=== PATIENT | male | born 1940 | race Caucasian/White ===

== ENCOUNTER → 2019-11-04 12:19 | Outpatient (CLI) | payer MEDICARE, OTHER, SELFPAY ==
--- NOTE | 2019-11-04 12:21 | DI.RAD.S_ITS ---
PROCEDURE: XR CERVICAL SPINE 4V OR 5V INDICATIONS: Neck pain TECHNIQUE: 5 views of the cervical spine acquired. COMPARISON: None. FINDINGS: Bones: No fractures or dislocations to the T1 level. Oblique images demonstrate no bony foraminal stenoses. There is mild degenerative disc reduction at C3-4, and C5-6 and C6-7. No subluxation is associated. The facet osteoarthritis present at the C3-4 level results in foraminal stenosis that is minimal on the right but mild to moderate on the left. Soft tissues: No prevertebral soft tissue swelling. IMPRESSION: Relatively mild degenerative disc disease is present except at the C5-C6 and C6-C7 level where moderate such degeneration can be seen. Left greater than right 3-C4 neural foraminal stenosis. Dictated by: Papito Bennett M.D. on 11/04/2019 at 13:12 Approved by: Papito Bennett M.D. on 11/04/2019 at 13:13
== END ==
PROVIDERS: PCP Family Medicine; Referring Provider Physical Medicine & Rehabilitation; Visit Provider Physical Medicine & Rehabilitation
DX: M50.122 Cervical disc disorder at C5-C6 level with radiculopathy (principal); M48.02 Spinal stenosis, cervical region
CPT/HCPCS: 72050; 99214

== ENCOUNTER → 2019-11-19 07:30 | Outpatient (CLI) | payer MEDICARE, OTHER, SELFPAY ==
--- NOTE | 2019-11-19 07:32 | DI.MRI.S_ITS ---
PROCEDURE: MR CERVICAL SPINE WO CON INDICATIONS: cervical radiculopathy TECHNIQUE: Noncontrast sagittal T1 spin echo and T2 fast spin echo, sagittal STIR, foraminal oblique sagittal T2 fast spin echo, and axial gradient echo or T2 fast spin echo through the cervical spine. COMPARISON: None. FINDINGS: Image quality: Excellent. Alignment and Curvature: Trace degenerative anterolisthesis of C3 on C4. Bone Marrow: Marrow demonstrates normal overall signal. Spinal Cord: Visualized spinal cord has normal size and signal. No cerebellar tonsillar herniation. Paraspinous Soft Tissues: No paravertebral masses. Prevertebral soft tissues are normal in thickness. C2-C3: Mild disc bulge. Bilateral facet hypertrophy. No canal stenosis. Mild right foraminal stenosis. C3-C4: Moderate disc height loss. Mild disc bulge. No significant canal stenosis. Bilateral uncovertebral joint hypertrophy. Bilateral facet hypertrophy. Mild right foraminal narrowing. Moderate left foraminal narrowing with mild flattening deformity on the exiting left C4 nerve root sleeve. C4-C5: No canal stenosis. Bilateral facet hypertrophy. Mild bilateral foraminal narrowing. C5-C6: Moderate disc height loss. No significant canal stenosis. Bilateral uncovertebral joint osteophytes, right greater the left. Bilateral facet hypertrophy. Severe right foraminal narrowing with right C6 nerve root impingement. Moderate left foraminal narrowing with flattening deformity on the exiting left C6 nerve root sleeve. C6-C7: Mild disc height loss. Moderate diffuse disc bulge with mild flattening of the ventral cord and mild canal stenosis. Prominent bilateral uncovertebral joint osteophytes. Bilateral facet hypertrophy. Moderate to severe bilateral foraminal narrowing with flattening deformity on the exiting bilateral C7 nerve roots. C7-T1: No canal stenosis or foraminal stenosis. IMPRESSION: 1. Diffuse spondylitic change. 2. Mild canal stenosis at C6-C7. 3. Multilevel cervical facet arthropathy. 4. A combination of multilevel uncovertebral joint hypertrophy and multilevel facet arthropathy results in significant multilevel foraminal narrowing as described above. Dictated by: Nishant Gamble M.D. on 11/19/2019 at 10:08 Approved by: Nishant Gamble M.D. on 11/19/2019 at 10:16
== END ==
PROVIDERS: PCP Family Medicine; Referring Provider Physical Medicine & Rehabilitation; Visit Provider Physical Medicine & Rehabilitation
DX: M47.22 Other spondylosis with radiculopathy, cervical region (principal); M48.02 Spinal stenosis, cervical region
CPT/HCPCS: 72141

== ENCOUNTER → 2020-01-09 08:51 | Outpatient (CLI) | payer MEDICARE, OTHER, SELFPAY ==
[2020-01-11 10:35] LABS: COVID19 Sendout Not Detected (Not Detect)
== END ==
PROVIDERS: PCP Family Medicine; Visit Provider Nurse Practitioner
DX: Z11.59 Encounter for screening for other viral diseases (principal)
CPT/HCPCS: 87635

== ENCOUNTER 2020-01-12 08:48 | Outpatient (CLI) | payer MEDICARE, OTHER, SELFPAY ==
[2020-01-12] VITALS (10 sets, daily range): BP systolic 107–151; BP diastolic 67–88; PULSE 67–75; RESP 6–20; TEMP 36.2; O2SAT 96–99
--- NOTE | 2020-01-12 08:49 | DI.RAD.S_ITS ---
PROCEDURE: PAIN C/T FACET INJ/BLK 1ST L INDICATIONS: SPINAL STENOSIS COMPARISON: None. FINDINGS: Fluoroscopic spot filming was performed to verify placement of spinal needles at the C5-C6 and C6-C7 levels on the right, as labeled on the films. Appropriate location(s) of the needle tip(s) was confirmed by injection of iodinated contrast. IMPRESSION: Intraprocedural examination within normal limits. Dictated by: Luis Pino M.D. on 01/12/2020 at 10:37 Approved by: Luis Pino M.D. on 01/12/2020 at 10:37
[2020-01-12] MEDS: MIDAZOLAM 5 MG/5 ML VIAL IV (09:42)
[2020-01-12] MEDS: BUPIVACAINE 0.5% (PF) VIAL 2 ML INJ (09:45)
[2020-01-12] MEDS: IOPAMIDOL 15 ML VIAL 3 ML INJ (09:45)
[2020-01-12] MEDS: DEXAMETHASONE 10 MG/ML VIAL 20 MG INJ (09:45)
--- NOTE | 2020-01-12 09:54 | P.PCN_ITS ---
Date/Time/Diagnoses Date of procedure: 01/12/20 Time of procedure: 09:54 Pre-procedure diagnosis: 1. FACET ARTHROPATHY 2. AXIAL NECK PAIN Post-procedure diagnosis: same Procedure Notes Procedure: 1. FLUOROSCOPICALLY GUIDED, CONTRAST-CONTROLLED RIGHT C5/6 AND C6/7 FACET JOINT INJECTIONS WITH CONSCIOUS SEDATION. Indications: Sebas Miles is referred by Dr. Culver for treatment of Axial Neck Pain Physician: Markus Gracia Total Fluoroscopy time (seconds): 6 Total sedation minutes: 7 Complications: none Procedure in detail & Post-procedure care: DESCRIPTION OF PROCEDURE Fluoroscopically guided, contrast-controlled right C5/6 and C6/7 facet joint injections with conscious sedation. Following review of allergy and review of potential side effects and complications, including, but not necessarily limited to, infection, allergic reaction, local tissue breakdown, stroke, temporary or permanent nerve injury and paralysis, the patient indicated that the patient understood and agreed to proceed. An informed consent document was signed by the patient, witnessed by a nurse, and placed in the patient's chart. Additionally, other treatment options including medications, modalities, and physical therapy were reviewed with the patient. After review of previous anaesthesic history and IV conscious sedation the patient was deemed safe to proceed with today?s procedure with IV conscious sedation as ASA class II designation. Safety time-out was performed to confirm patient ID, procedure to be performed and site of procedure. IV sedation was accomplished with a combination of 2mg of Versed was administered by the RN after DO order, titrated to patient comfort during the course of the procedure while the patient remained responsive to all verbal commands In the prone position, following sterile prep and drape of the cervical spine region, the posterior aspect of the right C5/6 and C6/7 facet joints were identified fluoroscopically. The skin was anesthetized via a 25-gauge 1.5-inch needle with 1% lidocaine solution into the corresponding facet joints. At this point, a 25-gauge 2.5-inch spinal needle was atraumatically introduced and advanced under fluoroscopic guidance into the corresponding facet joints. Following negative aspiration, injections of approximately 0.2-cc of Isovue 200 confirmed interarticular placement without vascular uptake. At this point, a total of 1 cc including 0.5 cc or 5mg of dexamethasone combined with 0.5 cc of 1% lidocaine solution was injected without complication into each of the corresponding facet joints. The procedure tolerated the procedure well without signs or symptoms of complications prior to transfer to the recovery area continued monitoring without incident. The patient was then transferred to the recovery area where they were observed for an appropriate period of time after the injection. The patient reported a VAS score of 7 prior to the procedure and a post- procedure VAS of 0. POST OP INSTRUCTIONS They were provided a Pain Log to continue to record their response to the target-specific procedure prior to their follow-up visit with their referring physician. Additionally, specific post-injection care instructions and a contact number to our office were provided if concerns arise regarding possible complications associated with the procedure are suspected.
--- NOTE | 2020-01-12 09:56 | PM.PROC.IR.1 ---
Date/Time/Diagnoses Date of procedure: 01/12/20 Time of procedure: 09:56
== END 2020-01-12 10:24 | disposition home or self-care (01) ==
LOC: RAD 08:49
PROVIDERS: PCP Family Medicine; Referring Provider Family Medicine; Visit Provider Physical Medicine & Rehabilitation
DX: M47.812 Spondylosis without myelopathy or radiculopathy, cervical region (principal); M54.2 Cervicalgia
CPT/HCPCS: 64490; 64491; J1100; J2250; J3010

== ENCOUNTER → 2020-04-13 10:36 | Outpatient (CLI) | payer MEDICARE, OTHER, SELFPAY ==
--- NOTE | 2020-04-13 10:38 | DI.MRI.S_ITS ---
PROCEDURE: MR LUMBAR SPINE WO CON INDICATIONS: stenosis TECHNIQUE: Noncontrast sagittal T1 spin echo and T2 fast echo, sagittal STIR, axial T1 and T2 fast spin echo through the lumbar spine. In cases with scoliosis, additional coronal T2 fast spin echo may be performed. COMPARISON: [facility], MR, MR LUMBAR SPINE WO CON, 06/28/2016, 16:42[facility], 01/17/2017, 9:32. FINDINGS: Image quality: Excellent. Alignment and Curvature: 5 lumbar type vertebral bodies are present by plain film. There is mild, grade 1 retrolisthesis of L2 on L3, L4 on L5, and L5 on S1. Mild grade 1 anterolisthesis of L3 on L4. Bone Marrow: Marrow is of normal overall signal. No acute vertebral body compression fractures. Mild reactive signal within the endplates adjacent to the L2-L3, L3-L4, L4-L5, and L5-S1 intervertebral discs. Spinal Cord: Conus medullaris terminates at the L1-L2 disc space level. Visualized cord demonstrates normal signal and size. Paraspinous Soft Tissues: No paravertebral masses. L1-L2: Mild facet hypertrophy. No significant canal, or foraminal stenosis. L2-L3: Mild disc height loss and desiccation. Mild diffuse disc bulge. Mild facet and ligament. Mild epidural lipomatosis. Increased, mild canal stenosis. Increased, mild bilateral foraminal stenosis. L3-L4: Mild disc height loss and desiccation. Mild diffuse disc bulge. Mild bilateral facet and ligamentum flavum hypertrophy. Mild epidural lipomatosis. Moderate canal stenosis. Increased, moderate left foraminal stenosis. No change in mild right foraminal stenosis. L4-L5: Moderate disc height loss and desiccation. Mild diffuse disc bulge. Mild facet and ligamentum flavum hypertrophy. Mild epidural lipomatosis. Mild canal stenosis. Mild left greater than right foraminal stenosis. No change. L5-S1: Moderate disc height loss. Mild disc desiccation. Mild diffuse disc bulge. Mild bilateral facet hypertrophy. No significant canal stenosis. Mild bilateral foraminal stenosis. No change. IMPRESSION: 1. Multilevel degenerative disc and facet disease, as well as ligamentum flavum hypertrophy and epidural lipomatosis. 2. Multilevel canal stenosis, worst at L3-L4 where there is moderate canal stenosis. 3. Mild multilevel foraminal stenoses. Dictated by: Suresh Hernandez M.D. on 04/13/2020 at 11:37 Approved by: Suresh Hernandez M.D. on 04/13/2020 at 11:40
== END ==
PROVIDERS: PCP Family Medicine; Referring Provider Physical Medicine & Rehabilitation; Visit Provider Physical Medicine & Rehabilitation
DX: M48.061 Spinal stenosis, lumbar region without neurogenic claudication (principal); M48.07 Spinal stenosis, lumbosacral region; M51.36 Other intervertebral disc degeneration, lumbar region; M51.37 Other intervertebral disc degeneration, lumbosacral region; M46.96 Unspecified inflammatory spondylopathy, lumbar region; E88.2 Lipomatosis, not elsewhere classified
CPT/HCPCS: 72148

== ENCOUNTER → 2024-03-02 08:47 | Outpatient (CLI) | payer MEDICARE, OTHER, SELFPAY ==
--- NOTE | 2024-03-02 08:50 | DI.RAD.S_ITS ---
PROCEDURE: XR LUMBAR SPINE MIN 4V INDICATIONS: BACK PAIN TECHNIQUE: 5 views of the lumbar spine were acquired, including bilateral oblique views. COMPARISON: None. FINDINGS: Bones: 5 nonrib-bearing vertebrae are present. There is trace retrolisthesis of L2 on L3, L4 on L5. Multilevel degenerative disc space narrowing most severe at L4-5, L5-S1. Severe foraminal narrowing is present L4-5, L5-S1, moderate L3-4. No vertebral body compression fractures. No suspicious bony lesions. Soft tissues: Overlying bowel gas pattern is normal. No suspicious soft tissue calcifications. Oblique images: No pars defects. IMPRESSION: Multilevel degenerative changes with foraminal narrowing most severe at L4-5, L5-S1. Dictated by: Rosario Brar M.D. on 03/02/2024 at 9:47 Approved by: Rosario Brar M.D. on 03/02/2024 at 9:47
--- NOTE | 2024-03-02 08:50 | DI.RAD.S_ITS ---
PROCEDURE: XR CERVICAL SPINE 4V OR 5V INDICATIONS: NECK PAIN TECHNIQUE: 5 views of the cervical spine acquired. COMPARISON: [facility], CR, XR CERVICAL SPINE 4V OR 5V, 11/04/2019, 12:24. FINDINGS: Bones: No fractures or dislocations to the T1 level. Multilevel degenerative disc space narrowing is present moderate to severe at C3-4, C5-6 and C6-7. Anterior osteophytes are most prominent at C5. Multilevel uncovertebral arthropathy is present. There is moderate foraminal narrowing C5-6 and C6-7 bilaterally left greater than right. Overall appearance is progressive compared to 2020. Soft tissues: No prevertebral soft tissue swelling. IMPRESSION: Multilevel degenerative changes progressive since 2019. Dictated by: Rosario Brar M.D. on 03/02/2024 at 9:44 Approved by: Rosario Brar M.D. on 03/02/2024 at 9:46
== END ==
PROVIDERS: PCP Student in an Organized Health Care Education/Training Program; Referring Provider Physical Medicine & Rehabilitation; Visit Provider Physical Medicine & Rehabilitation
DX: M47.22 Other spondylosis with radiculopathy, cervical region (principal); M48.061 Spinal stenosis, lumbar region without neurogenic claudication; M46.96 Unspecified inflammatory spondylopathy, lumbar region; M51.369 Other intervertebral disc degeneration, lumbar region without mention of lumbar back pain or lower extremity pain; M47.816 Spondylosis without myelopathy or radiculopathy, lumbar region; M47.817 Spondylosis without myelopathy or radiculopathy, lumbosacral region; M48.07 Spinal stenosis, lumbosacral region
CPT/HCPCS: 72050; 72110

== ENCOUNTER 2024-04-09 10:17 | Outpatient (CLI) | payer MEDICARE, OTHER, SELFPAY ==
[2024-04-09] VITALS (10 sets, daily range): BP systolic 105–125; BP diastolic 58–75; PULSE 72–85; RESP 12–19; TEMP 36.8; O2SAT 92–98
--- NOTE | 2024-04-09 10:19 | DI.RAD.S_ITS ---
PROCEDURE: PAIN L/S FACET INJ/BLK 1ST [place] INDICATIONS: LUMBAR ARTHROPATHY COMPARISON: None. FINDINGS/IMPRESSION: Fluoroscopic spot filming was performed to verify placement of spinal needles at the bilateral L3-L5 level(s), as labeled on the films. Appropriate location(s) of the needle tip(s) was confirmed by injection of iodinated contrast. Dictated by: Davonte Ahuja M.D. on 04/09/2024 at 16:46 Approved by: Davonte Ahuja M.D. on 04/09/2024 at 16:47
[2024-04-09] MEDS: MIDAZOLAM 2 MG/2 ML VIAL IV (12:03)
[2024-04-09] MEDS: iopamidoL 15 ML VIAL 3 ML INJ (12:07)
[2024-04-09] MEDS: LIDOCAINE 1% 20 ML 5 ML INJ (12:07)
[2024-04-09] MEDS: BUPIVACAINE 0.5% (PF) 10 ML VIAL 5 ML INJ (12:07)
--- NOTE | 2024-04-09 12:21 | P.PCN_ITS ---
Date/Time/Diagnoses Date of procedure: 04/09/24 Time of procedure: 12:21 Pre-procedure diagnosis: FACET ARTHROPATHY Post-procedure diagnosis: same Procedure Notes Procedure: 1. BILATERAL L3, L4 AND L5 DIAGNOSTIC MB BLOCKS Indications: Sebas is referred by Dr. Cordova for treatment of Bilateral Axial LBP. Physician: Markus Gracia Total Fluoroscopy time (seconds): 8 Total sedation minutes: 12 Complications: none Procedure in detail & Post-procedure care: DESCRIPTION OF PROCEDURE Fluoroscopically guided, contrast-controlled bilateral L3, L4 AND L5 medial branch blocks with 0.5cc of 0.5% Marcaine. Following review of allergy and review of potential side effects and complications, including, but not necessarily limited to, infection, allergic reaction, local tissue breakdown, nerve injury, paralysis, stroke and possible , the patient indicated that the patient understood and agreed to proceed. An informed consent document was signed by the patient, witnessed by a nurse, and placed in the patient's chart. After review of previous anaesthesic history and IV conscious sedation the patient was deemed safe to proceed with today's procedure with IV conscious sedation as ASA class II designation. Safety time-out was performed to confirm patient ID, procedure to be performed and site of procedure. IV sedation was accomplished with a combination of 2mg of Versed was administered by the RN after DO order, titrated to patient comfort during the course of the procedure while the patient remained responsive to all verbal commands In the prone position, following sterile prep and drape of the lumbar region, the right L3, L4 AND L5 anatomical location of the medial branch of the dorsal ramus was identified fluoroscopically. Subsequently an anesthetic skin wheal using 1% lidocaine solution was initiated at each of the anatomical spots. Subsequently then a 22-gauge 3.5-inch spinal needle was atraumatically introduced and advanced under fluoroscopic guidance at each of the corresponding sites at the right L3, L4 and L5 MB. After negative aspiration, 0.2cc of Isovue 200 was injected, confirming placement without vascular or intrathecal uptake. Subsequently then 0.5cc of 0.5% Marcaine solution was injected at each of the corresponding sites at the right L3, L4 and L5 medial branch locations. The identical procedure was replicated on the left. The patient tolerated the proc edure well without signs or symptoms of complications. The patient tolerated the procedure well without signs or symptoms of complications prior to transfer to the recovery area continued monitoring without incident. Post-procedure, the patient was monitored initiating provocative activities to measure the amount of relief from block of the facetogenic pain. The patient reported a VAS of 7 prior to the procedure and a post-procedure VAS of 1. It has been a pleasure to assist in the diagnostic and therapeutic care of your patient. POST OP INSTRUCTIONS The patient was provided with a Pain Log to complete over the next several hours and subsequent days prior to the patient's follow up with the ordering physician. If the patient has casting machine service operator relief to the solution applied, then they may be a candidate for medial branch rhizotomy. The patient is aware, was provided, once again, with a Pain Log and will follow up with the referring physician for review and clinical correlation
== END 2024-04-09 12:51 | disposition home or self-care (01) ==
PROVIDERS: PCP Student in an Organized Health Care Education/Training Program; Referring Provider Physical Medicine & Rehabilitation; Visit Provider Physical Medicine & Rehabilitation
DX: M47.816 Spondylosis without myelopathy or radiculopathy, lumbar region (principal)
CPT/HCPCS: 64493; 64494; 99152; J2250

== ENCOUNTER 2024-07-02 09:31 | Outpatient (CLI) | payer MEDICARE, OTHER, SELFPAY ==
[2024-07-02] VITALS (10 sets, daily range): BP systolic 95–145; BP diastolic 64–74; PULSE 72–82; RESP 16–20; TEMP 36.5; O2SAT 95–98
[2024-07-02] MEDS: MIDAZOLAM 2 MG/2 ML VIAL IV (11:30)
[2024-07-02] MEDS: iopamidoL 15 ML VIAL 3 ML INJ (11:32)
[2024-07-02] MEDS: LIDOCAINE 1% 20 ML 5 ML INJ (11:32)
[2024-07-02] MEDS: LIDOCAINE 2% INJ SDV 5ML 1 ML INJ (11:32)
--- NOTE | 2024-07-02 11:47 | P.PCN_ITS ---
Date/Time/Diagnoses Date of procedure: 07/02/24 Time of procedure: 11:47 Pre-procedure diagnosis: 1. FACET ARTHROPATHY Post-procedure diagnosis: same Procedure Notes Procedure: 1. BILATERAL L3, L4 AND L5 DIAGNOSTIC MB BLOCKS Indications: Sebas is referred by Dr. Cordova for treatment of Bilateral Axial LBP. Physician: Markus Gracia Total Fluoroscopy time (seconds): 22 Total sedation minutes: 18 Complications: none Procedure in detail & Post-procedure care: DESCRIPTION OF PROCEDURE Fluoroscopically guided, contrast-controlled bilateral L3, L4 AND L5 medial branch blocks with 0.5cc of 2% Lidocaine. Following review of allergy and review of potential side effects and complications, including, but not necessarily limited to, infection, allergic reaction, local tissue breakdown, nerve injury, paralysis, stroke and possible , the patient indicated that the patient understood and agreed to proceed. An informed consent document was signed by the patient, witnessed by a nurse, and placed in the patient's chart. After review of previous anaesthesic history and IV conscious sedation the patient was deemed safe to proceed with today's procedure with IV conscious sedation as ASA class II designation. Safety time-out was performed to confirm patient ID, procedure to be performed and site of procedure. IV sedation was accomplished with a combination of 2mg of Versed was administered by the RN after DO order, titrated to patient comfort during the course of the procedure while the patient remained responsive to all verbal commands In the prone position, following sterile prep and drape of the lumbar region, the right L3, L4 AND L5 anatomical location of the medial branch of the dorsal ramus was identified fluoroscopically. Subsequently an anesthetic skin wheal using 1% lidocaine solution was initiated at each of the anatomical spots. Subsequently then a 22-gauge 3.5-inch spinal needle was atraumatically introduced and advanced under fluoroscopic guidance at each of the corresponding sites at the right L3, L4 and L5 MB. After negative aspiration, 0.2cc of Isovue 200 was injected, confirming placement without vascular or intrathecal uptake. Subsequently then 0.5cc of 2% Lidocaine solution was injected at each of the corresponding sites at the right L3, L4 and L5 medial branch locations. The identical procedure was replicated on the left. The patient tolerated the p rocedure well without signs or symptoms of complications. The patient tolerated the procedure well without signs or symptoms of complications prior to transfer to the recovery area continued monitoring without incident. Post-procedure, the patient was monitored initiating provocative activities to measure the amount of relief from block of the facetogenic pain. The patient reported a VAS of 7 prior to the procedure and a post-procedure VAS of 1. It has been a pleasure to assist in the diagnostic and therapeutic care of your patient. POST OP INSTRUCTIONS The patient was provided with a Pain Log to complete over the next several hours and subsequent days prior to the patient's follow up with the ordering physician. If the patient has dermatology physician relief to the solution applied, then they may be a candidate for medial branch rhizotomy. The patient is aware, was provided, once again, with a Pain Log and will follow up with the referring physician for review and clinical correlation
== END 2024-07-02 12:10 | disposition home or self-care (01) ==
PROVIDERS: PCP Student in an Organized Health Care Education/Training Program; Referring Provider Physical Medicine & Rehabilitation; Visit Provider Physical Medicine & Rehabilitation
DX: M47.816 Spondylosis without myelopathy or radiculopathy, lumbar region (principal)
CPT/HCPCS: 64493; 64494; 99152; J2250

== ENCOUNTER 2024-11-03 10:10 | Outpatient (CLI) | payer MEDICARE, OTHER, SELFPAY ==
[2024-11-03] VITALS (11 sets, daily range): BP systolic 112–159; BP diastolic 61–84; PULSE 60–64; RESP 14–16; TEMP 36.4; O2SAT 96–99
[2024-11-03] MEDS: MIDAZOLAM 2 MG/2 ML VIAL IV (11:59)
[2024-11-03] MEDS: LIDOCAINE 1% 20 ML 5 ML INJ (12:03)
[2024-11-03] MEDS: BUPIVACAINE 0.5% (PF) 10 ML VIAL 5 ML INJ (12:04)
--- NOTE | 2024-11-03 12:39 | P.PCN_ITS ---
Date/Time/Diagnoses Date of procedure: 11/03/24 Time of procedure: 12:39 Pre-procedure diagnosis: 1. RECALCITRANT FACET ARTHROPATHY Post-procedure diagnosis: same Procedure Notes Procedure: 1. BILATERAL L3, L4 AND L5 MEDIAL BRANCH RADIOFREQUENCY NEUROTOMY Indications: Sebas is referred by Dr. Cordova for treatment of facet arthropathy. Physician: Markus Gracia Total Fluoroscopy time (seconds): 22 Total sedation minutes: 35 Complications: none Procedure in detail & Post-procedure care: DESCRIPTION OF PROCEDURE Bilateral L3, L4 and L5 medial branch radiofrequency neurotomy The patient is well known to this clinic having undergone previous facet injections with good but temporary relief. The patient has experienced appropriate, concordant relief with previous facet and median branch blocks but the patient's pain has been recalcitrant to further conservative measures. Therefore, based upon the patient's relief and persistent symptoms, the patient is considered an appropriate candidate for facet rhizotomy. All of the patient's questions regarding the risks versus benefits of the procedure, including, but not limited to, bleeding, infection, temporary as well as lasting nerve injury, paralysis, stroke, and , as well treatment alternatives were answered to satisfaction. After obtaining informed consent, denial of pertinent drug allergies, as well as being made aware of the potential risks of bleeding, infection, spinal cord trauma, paralysis, temporary and permanent nerve damage, seizure, stroke, and possible , the patient was brought to the fluoroscopy suite and positioned prone on the fluoroscopy table. After review of previous anaesthesic history and IV conscious sedation the patient was deemed safe to proceed with today's procedure with IV conscious sedation as ASA class II designation. Safety time-out was performed to confirm patient ID, procedure to be performed and site of procedure. IV sedation was accomplished with a combination of 2mg of Versed administered by the RN after DO order, titrated to patient comfort during the course of the procedure while the patient remained responsive to all verbal commands. The lumbar region was prepped in usual sterile fashion and covered with a fenestrated drape in the usual sterile fashion. Appropriate monitors applied including pulse oximeter, pulse, and blood pressure for regular monitoring throughout the procedure. After local infiltration using 1% lidocaine, under fluoroscopic guidance, a 10- cm RF insulated needle with a 10-mm active tip was positioned parallel to the junction of the right the superior articulating process where the L5 medial branch resides. Needle placement was confirmed with motor stimulation of .5v on the right which produced local stimulation without radicular component. The stimulation was then increased to 2v with, once again, only local multifidus stimulation without radicular component. The needle was then removed and the identical procedure was performed along the length of the right L4 medial branch with motor stimulation at .7v on the right. The identical procedure was once again performed along the length of the right L3 and medial branch with motor stimulation of .5v on the right. The medial branches were then anesthetised with 0.5% marcaine. This was then followed by two discreet lesions performed at 80 degrees Celsius for 90 seconds each. The identical procedures were repeated on the left. The patient tolerated the procedure well without signs or symptoms of complications prior to transfer to the recovery area continued monitoring with out incident. The patient was then transferred to the recovery area where they were observed for an appropriate period of time after the injection. The patient reported a VAS score of 8 prior to the procedure and a post-procedure VAS of 1. POST OP INSTRUCTIONS The patient was provided a Pain Log to continue to record the patient's response to the target-specific procedure prior to the patient's follow-up visit with the referring physician. Additionally, specific post-injection care instructions and a contact number to our office were provided if concerns arise regarding possible complications associated with the procedure are suspected.
== END 2024-11-03 12:53 | disposition home or self-care (01) ==
LOC: RAD 10:11
PROVIDERS: PCP Student in an Organized Health Care Education/Training Program; Referring Provider Physical Medicine & Rehabilitation; Visit Provider Physical Medicine & Rehabilitation
DX: M47.816 Spondylosis without myelopathy or radiculopathy, lumbar region (principal)
CPT/HCPCS: 64635; 64636; 99152; 99153; J2250

== ENCOUNTER 2025-02-16 09:10 | Outpatient (CLI) | payer MEDICARE, OTHER, SELFPAY ==
[2025-02-16] VITALS (9 sets, daily range): BP systolic 117–151; BP diastolic 65–73; PULSE 65–73; RESP 16–18; TEMP 36.7; O2SAT 95–98
[2025-02-16] MEDS: MIDAZOLAM 2 MG/2 ML VIAL IV (10:25)
--- NOTE | 2025-02-16 10:48 | P.PCN_ITS ---
Date/Time/Diagnoses Date of procedure: 02/16/25 Time of procedure: 10:48 Pre-procedure diagnosis: 1. CERVICAL STENOSIS, 2. CERVICAL HNP WITH UPPER EXTREMITY RADICULAR FEATURES Post-procedure diagnosis: same Procedure Notes Procedure: 1. FLUORSCOPICALLY GUIDED CONTRAST CONTROLLED INTERLAMINAR EPIDURAL STEROID INJECTION - C6/7 TL ELEANOR Indications: Sebas is referred by Dr. Cordova for treatment of Cervical HNP with Upper Extremity Paresthesias. Physician: Markus Gracia Total Fluoroscopy time (seconds): 23 Total sedation minutes: 17 Complications: none Procedure in detail & Post-procedure care: FINDINGS Cervical Stenosis due to disc deterioration and nerve root irritation and nerve root irritation DESCRIPTION OF PROCEDURE Fluoroscopically guided, contrast-controlled C6/7 translaminar epidural steroid injection with conscious sedation. Following review of allergy and review of potential side effects and complications, including, but not necessarily limited to, infection, allergic reaction, local tissue breakdown, temporary as well as permanent nerve injury, stroke, paralysis, and possible , the patient indicated that patient understood and agreed to proceed. An informed consent document was signed by the patient, witnessed by a nurse, and placed in the patient's chart. Additionally, other treatment options including modalities, medications, and physical therapy were reviewed with the patient. After review of previous anaesthesic history and IV conscious sedation the patient was deemed safe to proceed with today?s procedure with IV conscious juan tion as ASA class II designation. Safety time-out was performed to confirm patient ID, procedure to be performed and site of procedure. IV sedation was accomplished with a combination of 2mg of Versed administered by the RN after DO order, titrated to patient comfort during the course of the procedure while the patient remained responsive to all verbal commands. In the prone position, following sterile prep and drape of the cervical region, the C6/7 translaminar space was identified fluoroscopically. The skin was anesthetized via a 25-gauge 1.5-inch needle with 1% lidocaine solution. At this point, a 25-gauge, 2.5-inch short bevel spinal needle was atraumatically introduced and advanced under fluoroscopic guidance into epidural space at the C6/7 translaminar space. Depth was confirmed on lateral view. Radiological data, including multiple fluoroscopic views of the cervical spine, reveal a spinal needle at the C6/7 translaminar space. Lateral views then show placement of the needle in the epidural space. Subsequent views show contrast material flowing superiorly and inferiorly in the epidural space. DSA fluoroscopy with live contrast injection, once again, confirmed no vascular or intrathecal uptake. At this point, using loss of resistance technique with saline and air, the epidural space was entered. Following negative aspiration, injection of approximately 1.5 cc of Isovue-200 with live fluoroscopy in the AP view confirmed epidural flow in the epidural space without vascular or intrathecal uptake observed. Subsequently, a test dose of 1 cc of 1% lidocaine solution was injected and patient was observed for two minutes without signs or symptoms of complications, including abdominal pain, shortness of breath, bilateral upper or lower extremity weakness, nausea and vomiting, prior to steroid injection. At this point, 2cc or 20mg of dexamethasone was then injected without incident. The patient tolerated the procedure well without signs or symptoms of com plications prior to being transferred to the recovery area for further monitoring, The patient was then transferred to the recovery area where they were observed for an appropriate period of time after the injection. The patient reported a VAS score of 6 prior to the procedure and a post-procedure VAS of 0. POST OP INSTRUCTIONS The patient was provided a Pain Log to continue to record their response to the target-specific procedure prior to follow-up visit with the referring provider. Additionally, specific post-injection care instructions and a contact number to our office were provided if concerns arise regarding possible complications associated with the procedure are suspected.
== END 2025-02-16 11:04 | disposition home or self-care (01) ==
LOC: RAD 09:10
PROVIDERS: PCP Student in an Organized Health Care Education/Training Program; Referring Provider Physical Medicine & Rehabilitation; Visit Provider Physical Medicine & Rehabilitation
DX: M48.02 Spinal stenosis, cervical region (principal); M50.123 Cervical disc disorder at C6-C7 level with radiculopathy
CPT/HCPCS: 62321; 99152; J1100; J2250